=== PATIENT | male | born 2000 | race Caucasian/White ===

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

== ENCOUNTER 2020-03-07 12:10 | Emergency (ER) | payer MEDICAID ==
[~2020-03-07] VITALS: Ht 182.9 cm; Wt 104.5 kg
[~2020-03-07 12:10] MED LIST: KEFLEX500 MG PO; TORADOL10 MG PO
[2020-03-07 12:23] VITALS: BP 173/116; Ht 182.9 cm; Wt 104.5 kg
[2020-03-07 13:09] LABS: BILIRUBIN NEGATIVE (NEGATIVE); GLUCOSE NEGATIVE (NEGATIVE); KETONE NEGATIVE (NEGATIVE); NITRITE NEGATIVE (NEGATIVE); UROBILINOGEN NORMAL (NORMAL)
[2020-03-07 13:11] LABS: BACTERIA FEW /hpf (NEGATIVE); EPITHELIAL CELLS 0-5 /hpf (0-5); WHITE CELLS - URINE 0-5 /hpf (NEGATIVE)
[2020-03-07 13:24] LABS: CALC OSMOLALITY 278 mosm/kg (275-300); CALCIUM 8.8 mg/dL (8.5-10.1); CARBON DIOXIDE 27.6 mmol/L (21.0-32.0); CHLORIDE - SERUM 107 mmol/L (98-107); CREATININE - SERUM 1.1 mg/dL (0.6-1.3); GLUCOSE 111 mg/dL (74-106); SODIUM 140 mmol/L (136-145); UREA NITROGEN 11 mg/dL (7-18); eGFR NON AFRICAN AMERICAN > 90 mL/min (90-120)
[2020-03-07 13:32] LABS: ALKALINE PHOSPHATASE 93 U/L (30-120); ALT (SGPT) 134 U/L (10-68); AMYLASE - SERUM 44 U/L (25-115); BILIRUBIN - TOTAL 0.98 mg/dL (0.2-1.3); LIPASE 90 U/L (73-393); PROTEIN - SERUM 7.9 g/dL (6.4-8.2); TROPONIN-I < 0.017 ng/mL (0.000-0.060)
[2020-03-07 13:38] LABS: BASOPHILS 0.1 % (0-2); EOSINOPHILS 0.8 % (0-7); HEMATOCRIT 43.4 % (42.0-54.0); HEMOGLOBIN 14.8 g/dL (13.5-17.5); IMMATURE GRANULOCYTES 0.8 % (0-5); MCH 30.1 pg (26.0-34.0); MCHC 34.1 g/dL (31.0-37.0); MCV 88.4 fL (80.0-100.0); MEAN PLATELET VOLUME 10.8 fL (7.4-10.4); MONOCYTES 7.3 % (2-11); PLATELET COUNT 198 10x3/uL (130-400); RBC 4.91 10x6/uL (4.20-6.10); RDW 12.4 % (11.5-14.5); WBC 7.8 10x3/uL (4.8-10.8)
[2020-03-07] MEDS ORDERED: TYLENOL W/CODEI1 TAB PO (14:49)
[2020-03-07] MEDS ORDERED: FLOMAX0.4 MG PO (14:49)
[2020-03-07] MEDS ORDERED: TORADOL10 MG PO (14:52)
== END 2020-03-07 15:26 | disposition home or self-care (01) ==
LOC: D.ER 12:10
DX: N20.0 Calculus of kidney (principal); R10.9 Unspecified abdominal pain